=== PATIENT | female | born 1950 | race Caucasian/White ===

== ENCOUNTER 2024-03-18 22:52 | Inpatient (IN) | payer MEDICARE ==
[~2024-03-18] VITALS: Ht 157.5 cm; Wt 52.3 kg
[2024-03-18] MEDS: methylPREDNISolone SOD SUCC 125 MG/2 ML VIAL IV ONE (00:01)
[2024-03-18] MEDS ORDERED: ALBUTEROL SULFATE 2.5 MG/3 ML NEBU ONE (23:22)
[2024-03-18] MEDS: ALBUTEROL SULFATE 2.5 MG/3 ML NEBU NEB ONE (23:28)
[2024-03-18 23:29] VITALS: O2SAT 96
[2024-03-18 23:31] LABS: BASOPHILS % (AUTO) 0.2 % (0.0-2.0); DIFFERENTIAL COMMENT 0; EOSINOPHILS # (AUTO) 0.2 K/uL (0.0-0.7); EOSINOPHILS % (AUTO) 2.1 % (0.0-7.0); HEMATOCRIT 30.6 % (31.2-41.9); HEMOGLOBIN 9.8 g/dL (10.9-14.3); LYMPHOCYTES # (AUTO) 1.3 K/uL (0.8-4.8); LYMPHOCYTES % (AUTO) 13.2 % (20.5-51.5); MEAN CORPUSCULAR HEMOGLOBIN 28.5 uug (24.7-32.8); MEAN CORPUSCULAR HGB CONC 32 g/dL (32.3-35.6); MONOCYTES # (AUTO) 0.9 K/uL (0.1-1.30); MONOCYTES % (AUTO) 9.7 % (0.0-11.0); NEUTROPHILS # (AUTO) 7.2 K/uL (1.8-8.9); NEUTROPHILS % (AUTO) 74.8 % (38.5-71.5); PLATELET COUNT (AUTO) 211 K/uL (179-408); RED BLOOD CELL COUNT(AUTO) 3.44 MIL/uL (3.63-4.92); RED CELL DISTRIBUTION WIDTH 15.8 % (12.3-17.7); WHITE BLOOD COUNT (AUTO) 9.6 K/uL (3.8-11.8)
[2024-03-18 23:34] LABS: CARBON DIOXIDE 33 mmol/L (21-32); CHLORIDE 102 mmol/L (98-107); CREATININE 1.3 mg/dL (0.6-1.3); GLUCOSE 112 mg/dL (74-106); POTASSIUM 4.6 mmol/L (3.5-5.1); SODIUM SERUM 139 mmol/L (136-145); UREA NITROGEN, BLOOD 27 mg/dL (7-18)
[2024-03-18] MEDS ORDERED: methylPREDNISolone SOD SUCC 125 MG/2 ML VIAL ONE (23:36)
[2024-03-18 23:42] VITALS: O2SAT 98
[2024-03-18 23:43] VITALS: O2SAT 98
[2024-03-18 23:49] LABS: ALANINE AMINOTRANSFERASE 14 U/L (14-59); ALBUMIN 2.7 g/dL (3.4-5.0); ALKALINE PHOSPHATASE 65 U/L (50-136); ASPARTATE AMINOTRANSFERASE 13 U/L (15-37); BILIRUBIN,TOTAL 0.4 mg/dL (0.2-1.0); NT-PRO BNP 633 pg/mL (0-125); TOTAL PROTEIN, SERUM 6.9 g/dL (6.4-8.2)
[2024-03-19] VITALS (9 sets, daily range): BP systolic 116–171; BP diastolic 63–88; TEMP 97.7–98.7; O2SAT 84–99
[2024-03-19 00:29] LABS: ABG BASE EXCESS 6.1 mmol/L (-2.0-2.0); ABG HCO3 31.7 mmol/L (22.0-26.0); ABG PCO2 50.5 mmHg (35.0-48.0); ABG PH 7.415 (7.340-7.440); ABG PO2 78.1 mmHg (75.0-100.0); ABG SITE RIGHT BRACHIAL; ABG TOTAL HEMOGLOBIN 10.4 G/dL (12.0-16.0); AaDO2 95.5 mmHg; COHb 0.3 % (0.0-3.9); MetHb 0.2 % (0.0-1.5); O2Hb 94.1 % (94.0-97.0)
[2024-03-19] MEDS ORDERED: MAGNESIUM HYDROXIDE 30 ML LIQUID UDC PO PRN (00:45)
[2024-03-19] MEDS ORDERED: ACETAMINOPHEN 325 MG TABLET PO PRN (00:45)
[2024-03-19] MEDS ORDERED: PIPERACILLIN SODIUM/TAZOBACTAM 3.375 G in IV DEXTROSE 5% 50 ML IV SCH (00:45)
[2024-03-19] MEDS ORDERED: REMEDY ESSENTIAL ZINC PASTE 113 GM TP PRN (00:45)
[2024-03-19] MEDS: ASPIRIN 325 MG TABLET PO ONE (02:45)
[2024-03-19] MEDS ORDERED: ASPIRIN 325 MG TABLET ONE (02:46)
[2024-03-19] MEDS ORDERED: PIPERACILLIN/TAZOBACTAM/D5W 50 ML IV ONE (03:27)
[2024-03-19] MEDS: IV NS 1000 ML 1,000 ML IV SCH (03:30)
[2024-03-19] MEDS: PIPERACILLIN SODIUM/TAZOBACTAM 3.375 G in IV DEXTROSE 5% 50 ML IV SCH (04:23)
[2024-03-19] MEDS: PHENAZOPYRIDINE HCL 100 MG TABLET PO SCH (04:23)
[2024-03-19 05:15] LABS: *BILIRUBIN,URIN NEGATIVE (NEGATIVE); *CLARITY,URINE CLEAR (CLEAR); *COLOR,URINE LIGHT YELLOW (YELLOW); *KETONES,URINE NEGATIVE (NEGATIVE); *PROTEIN,URINE 2+ (NEGATIVE); *UROBILINOGEN,URINE 0.2 E.U./dl (NORMAL); LEUKOCYTE ESTERASE ,URINE NEGATIVE (NEGATIVE); NITRITE, URINE NEGATIVE (NEGATIVE); PH,URINE 8.5 (5.0-8.0); UGLUCOSE NEGATIVE (NEGATIVE)
[2024-03-19] MEDS ORDERED: IV NS 1000 ML 1,000 ML IV PRN (05:16)
[2024-03-19 05:20] LABS: *BLOOD, URINE TRACE (NEGATIVE)
[2024-03-19 05:39] LABS: BACTERIA,URINE RARE /HPF (NONE SEEN); SQUAMOUS EPITHELIAL CELL,UR FEW /HPF (NONE SEEN)
[2024-03-19] MEDS: ONDANSETRON 4 MG/2 ML VIAL IV PRN (06:38)
[2024-03-19] MEDS: predniSONE 20 MG TABLET PO SCH (08:37)
[2024-03-19] MEDS: PANTOPRAZOLE SODIUM 40 MG VIAL IV SCH (08:37)
[2024-03-19] MEDS ORDERED: AMLO10TA59 PO (10:34)
[2024-03-19] MEDS ORDERED: FENO145T21 PO (10:34)
[2024-03-19] MEDS ORDERED: ESCI20TA44 PO (10:34)
[2024-03-19] MEDS ORDERED: ATOR10TA PO (10:34)
[2024-03-19] MEDS: PIPERACILLIN SODIUM/TAZOBACTAM 3.375 G in IV DEXTROSE 5% 100 ML IV SCH (13:05)
[2024-03-19] MEDS ORDERED: PHENAZOPYRIDINE HCL 100 MG TABLET PO SCH (14:00)
[2024-03-19] MEDS: IPRATROPIUM BROMIDE 0.5 MG/2.5 ML NEBU NEB PRN (17:05)
[2024-03-19] MEDS: ALBUTEROL SULFATE 2.5 MG/ 0.5 ML NEBU NEB PRN (17:05)
[2024-03-19] MEDS: HYDROCODONE/APAP 5-325MG TABLET PO PRN (20:17)
[2024-03-20] VITALS (7 sets, daily range): BP systolic 127–143; BP diastolic 58–75; TEMP 98.2–98.3; O2SAT 93–98
[2024-03-20 06:37] LABS: BASOPHILS % (AUTO) 0.1 % (0.0-2.0); HEMATOCRIT 30.8 % (31.2-41.9); HEMOGLOBIN 10.1 g/dL (10.9-14.3); LYMPHOCYTES % (AUTO) 13.7 % (20.5-51.5); MEAN CORPUSCULAR HEMOGLOBIN 29.1 uug (24.7-32.8); MEAN CORPUSCULAR HGB CONC 33 g/dL (32.3-35.6); MEAN CORPUSCULAR VOLUME 88.8 fL (75.5-95.3); MONOCYTES # (AUTO) 0.7 K/uL (0.1-1.30); MONOCYTES % (AUTO) 9.6 % (0.0-11.0); NEUTROPHILS # (AUTO) 5.8 K/uL (1.8-8.9); NEUTROPHILS % (AUTO) 76.6 % (38.5-71.5); PLATELET COUNT (AUTO) 208 K/uL (179-408); RED BLOOD CELL COUNT(AUTO) 3.47 MIL/uL (3.63-4.92); RED CELL DISTRIBUTION WIDTH 16.1 % (12.3-17.7); WHITE BLOOD COUNT (AUTO) 7.6 K/uL (3.8-11.8)
[2024-03-20 06:43] LABS: DIFFERENTIAL COMMENT 1
[2024-03-20 06:56] LABS: CALCIUM 9.3 mg/dL (8.5-10.1); CREATININE 1.3 mg/dL (0.6-1.3); PHOSPHOROUS 3.5 mg/dL (2.5-4.9); POTASSIUM 4.1 mmol/L (3.5-5.1)
[2024-03-20] MEDS: AMLODIPINE 10 MG TABLET PO SCH (09:02)
[2024-03-20] MEDS: FENOFIBRATE NANOCRYSTALLIZED 145 MG TABLET PO SCH (09:02)
[2024-03-20] MEDS: ESCITALOPRAM OXALATE 10 MG TABLET PO SCH (09:42)
[2024-03-20] MEDS: ATORVASTATIN 10 MG TABLET PO SCH (20:16)
[2024-03-20] MEDS: TRAZODONE 50 MG TABLET PO SCH (22:02)
[2024-03-20] MEDS: HYDROCODONE/APAP 5-325MG TABLET PO PRN (23:19)
[2024-03-21] VITALS (9 sets, daily range): BP systolic 90–143; BP diastolic 56–75; TEMP 97.7–98.6; O2SAT 93–98
[2024-03-21] MEDS: PANTOPRAZOLE SODIUM 40 MG TABLET.DR PO SCH (06:23)
[2024-03-21 06:27] LABS: BASOPHILS % (AUTO) 0.1 % (0.0-2.0); EOSINOPHILS % (AUTO) 0.3 % (0.0-7.0); HEMATOCRIT 28.1 % (31.2-41.9); HEMOGLOBIN 9.1 g/dL (10.9-14.3); LYMPHOCYTES # (AUTO) 1.6 K/uL (0.8-4.8); LYMPHOCYTES % (AUTO) 26.3 % (20.5-51.5); MEAN CORPUSCULAR HEMOGLOBIN 28.8 uug (24.7-32.8); MEAN CORPUSCULAR HGB CONC 32 g/dL (32.3-35.6); MEAN CORPUSCULAR VOLUME 89.2 fL (75.5-95.3); MONOCYTES # (AUTO) 0.7 K/uL (0.1-1.30); MONOCYTES % (AUTO) 11.1 % (0.0-11.0); NEUTROPHILS # (AUTO) 3.7 K/uL (1.8-8.9); NEUTROPHILS % (AUTO) 62.2 % (38.5-71.5); PLATELET COUNT (AUTO) 205 K/uL (179-408); RED BLOOD CELL COUNT(AUTO) 3.15 MIL/uL (3.63-4.92); RED CELL DISTRIBUTION WIDTH 15.8 % (12.3-17.7)
[2024-03-21 06:42] LABS: CARBON DIOXIDE 31 mmol/L (21-32); CHLORIDE 107 mmol/L (98-107); CREATININE 1.2 mg/dL (0.6-1.3); GLUCOSE 89 mg/dL (74-106); MAGNESIUM 1.9 mg/dL (1.8-2.4); PHOSPHOROUS 4.1 mg/dL (2.5-4.9); POTASSIUM 4.4 mmol/L (3.5-5.1); SODIUM SERUM 143 mmol/L (136-145); UREA NITROGEN, BLOOD 24 mg/dL (7-18)
[2024-03-21 06:55] LABS: DIFFERENTIAL COMMENT 1
[2024-03-21] MEDS: ENSURE ENLIVE (VAN) 240 ML LIQUID PO SCH (08:00)
[2024-03-21] MEDS: GUAIFENESIN/DEXTROMETHORPHAN 5 ML UDC PO PRN (10:39)
[2024-03-21] MEDS: LORAZEPAM 0.5 MG TABLET PO PRN (20:21)
[2024-03-22 05:58] VITALS: BP 120/71; TEMP 97.4; O2SAT 95
[2024-03-22] MEDS: ESCITALOPRAM OXALATE 10 MG TABLET PO SCH (09:41)
[2024-03-22] MEDS: predniSONE 20 MG TABLET PO SCH (09:41)
[2024-03-22 11:33] VITALS: BP 141/61; TEMP 97.8; O2SAT 97
[2024-03-22] MEDS ORDERED: HYDROCODONE/APAP 5-325MG TABLET PO PRN (11:45)
[2024-03-22] MEDS: CEFTRIAXONE 1 G in IV DEXTROSE 5% 50 ML IV SCH (13:02)
[2024-03-22 15:14] VITALS: O2SAT 97
[2024-03-22 15:53] VITALS: BP 116/52; TEMP 97.6; O2SAT 95
[2024-03-22] MEDS: LORAZEPAM 1 MG TABLET PO PRN (16:51)
[2024-03-22] MEDS ORDERED: CEFT1FRO2 IV (21:24)
[2024-03-22] MEDS ORDERED: MAGN400O6 PO (21:24)
[2024-03-22] MEDS ORDERED: AMLO10TA4 PO (21:24)
[2024-03-22] MEDS ORDERED: PRED20TA PO (21:24)
[2024-03-22] MEDS ORDERED: ALBU2.5V38 IH (21:24)
[2024-03-22] MEDS ORDERED: FENO145T PO (21:24)
[2024-03-22] MEDS ORDERED: ONDA4TAB5 IV (21:24)
[2024-03-22] MEDS ORDERED: PANT40TA49 PO (21:24)
[2024-03-22] MEDS ORDERED: GUAI5SYR PO (21:24)
[2024-03-22] MEDS ORDERED: LACT-84 PO (21:24)
[2024-03-22] MEDS ORDERED: LORA4VIA19 IJ (21:24)
[2024-03-22] MEDS ORDERED: IPRA0.2S48 NEB (21:24)
[2024-03-22] MEDS ORDERED: IPRA0.2S6 NEB (21:24)
[2024-03-22] MEDS ORDERED: ESCI10TA PO (21:24)
[2024-03-23] MEDS ORDERED: CEFTRIAXONE /D5W 50ML IVPB **ER PYXIS IV ONE (00:05)
== END 2024-03-22 19:00 | DRG 190 ==
LOC: ER 22:54 → TELE3 03-19 00:40 → MEDSURG3 03-19 00:41
PROVIDERS: ATTEND Nurse Practitioner Acute Care
DX: J44.1 Chronic obstructive pulmonary disease with (acute) exacerbation (principal); I21.A1 Myocardial infarction type 2; J18.9 Pneumonia, unspecified organism; J96.01 Acute respiratory failure with hypoxia; F33.9 Major depressive disorder, recurrent, unspecified; N39.0 Urinary tract infection, site not specified; R79.89 Other specified abnormal findings of blood chemistry; J44.0 Chronic obstructive pulmonary disease with (acute) lower respiratory infection; N18.30 Chronic kidney disease, stage 3 unspecified; E78.5 Hyperlipidemia, unspecified; I12.9 Hypertensive chronic kidney disease with stage 1 through stage 4 chronic kidney disease, or unspecified chronic kidney disease; Z79.899 Other long term (current) drug therapy; I35.0 Nonrheumatic aortic (valve) stenosis; Z86.69 Personal history of other diseases of the nervous system and sense organs; F41.9 Anxiety disorder, unspecified; B95.2 Enterococcus as the cause of diseases classified elsewhere; Z87.891 Personal history of nicotine dependence; Z82.5 Family history of asthma and other chronic lower respiratory diseases; R26.81 Unsteadiness on feet; D63.8 Anemia in other chronic diseases classified elsewhere; Z90.49 Acquired absence of other specified parts of digestive tract; R53.1 Weakness
CPT/HCPCS: 36415; 36600; 71045; 83605; 83735; 84100; 84484; 85025; 87040; 93307; 94640; A6213; C9113; G0378; J0696; J2405; J2543; J2919; J3590; J7512

== ENCOUNTER 2024-03-22 15:00 | Inpatient (IN) | payer MEDICARE ==
[~2024-03-22] VITALS: Ht 157.5 cm; Wt 54.0 kg
[~2024-03-22 15:00] MED LIST: AMLO10TA59 PO; ATOR10TA PO; ESCI20TA44 PO; FENO145T21 PO
[2024-03-22 20:00] VITALS: BP 121/70; TEMP 97.8; O2SAT 97
[2024-03-22] MEDS ORDERED: GUAI5SYR PO (21:24)
[2024-03-22] MEDS ORDERED: FENO145T PO (21:24)
[2024-03-22] MEDS ORDERED: PRED20TA PO (21:24)
[2024-03-22] MEDS ORDERED: IPRA0.2S6 NEB (21:24)
[2024-03-22] MEDS ORDERED: PANT40TA49 PO (21:24)
[2024-03-22] MEDS ORDERED: LORA4VIA19 IJ (21:24)
[2024-03-22] MEDS ORDERED: ONDA4TAB5 IV (21:24)
[2024-03-22] MEDS ORDERED: ALBU2.5V38 IH (21:24)
[2024-03-22] MEDS ORDERED: CEFT1FRO2 IV (21:24)
[2024-03-22] MEDS ORDERED: AMLO10TA4 PO (21:24)
[2024-03-22] MEDS ORDERED: LACT-84 PO (21:24)
[2024-03-22] MEDS ORDERED: ESCI10TA PO (21:24)
[2024-03-22] MEDS ORDERED: IPRA0.2S48 NEB (21:24)
[2024-03-22] MEDS ORDERED: MAGN400O6 PO (21:24)
[2024-03-22] MEDS ORDERED: LORAZEPAM 2 MG/1 ML VIAL IV PRN (22:00)
[2024-03-22] MEDS ORDERED: ONDANSETRON 4 MG/2 ML VIAL IV PRN (22:00)
[2024-03-22] MEDS ORDERED: CEFTRIAXONE 1 G in IV DEXTROSE 5% 50 ML IV SCH (22:00)
[2024-03-22] MEDS ORDERED: ALBUTEROL SULFATE 2.5 MG/ 0.5 ML NEBU NEB PRN (22:00)
[2024-03-22] MEDS ORDERED: MAGNESIUM HYDROXIDE 30 ML LIQUID UDC PO PRN (22:00)
[2024-03-22] MEDS: IPRATROPIUM BROMIDE 0.5 MG/2.5 ML NEBU NEB SCH (23:30)
[2024-03-23] VITALS (7 sets, daily range): BP systolic 105–143; BP diastolic 66–73; TEMP 98.4–98.6; O2SAT 91–99
[2024-03-23] MEDS: HYDROCODONE/APAP 5-325MG TABLET PO PRN (05:37)
[2024-03-23] MEDS: PANTOPRAZOLE SODIUM 40 MG TABLET.DR PO SCH (06:25)
[2024-03-23] MEDS ORDERED: predniSONE 20 MG TABLET PO SCH (08:00)
[2024-03-23] MEDS: ENSURE ENLIVE (VAN) 240 ML LIQUID PO SCH (08:00)
[2024-03-23] MEDS: AMLODIPINE 10 MG TABLET PO SCH (08:51)
[2024-03-23] MEDS: FENOFIBRATE NANOCRYSTALLIZED 145 MG TABLET PO SCH (08:52)
[2024-03-23] MEDS: ESCITALOPRAM OXALATE 10 MG TABLET PO SCH (08:52)
[2024-03-23] MEDS: predniSONE 10 MG TABLET PO SCH (08:54)
[2024-03-23] MEDS ORDERED: REMEDY ESSENTIAL ZINC PASTE 113 GM TOP SCH (09:00)
[2024-03-23] MEDS ORDERED: CEFTRIAXONE 1 G in IV DEXTROSE 5% 50 ML IV SCH (11:00)
[2024-03-23] MEDS: IPRATROPIUM BROMIDE 0.5 MG/2.5 ML NEBU NEB PRN (12:29)
[2024-03-23] MEDS: ALBUTEROL SULFATE 2.5 MG/ 0.5 ML NEBU NEB PRN (12:29)
[2024-03-23] MEDS: REMEDY ESSENTIAL ZINC PASTE 113 GM TOP SCH (12:50)
[2024-03-23] MEDS: LORAZEPAM 1 MG TABLET PO PRN (14:35)
[2024-03-23] MEDS: NITROFURANTOIN/NITROFURAN MAC 100 MG CAPSULE PO SCH (16:39)
[2024-03-23] MEDS: ATORVASTATIN 10 MG TABLET PO SCH (20:09)
[2024-03-23] MEDS: GUAIFENESIN/DEXTROMETHORPHAN 5 ML UDC PO PRN (20:11)
[2024-03-24] VITALS (8 sets, daily range): BP systolic 112–121; BP diastolic 55–73; TEMP 98.1–98.6; O2SAT 94–97
[2024-03-24 07:29] LABS: BASOPHILS % (AUTO) 0.2 % (0.0-2.0); EOSINOPHILS # (AUTO) 0.5 K/uL (0.0-0.7); EOSINOPHILS % (AUTO) 6.5 % (0.0-7.0); HEMATOCRIT 30.1 % (31.2-41.9); HEMOGLOBIN 9.7 g/dL (10.9-14.3); LYMPHOCYTES # (AUTO) 1.7 K/uL (0.8-4.8); LYMPHOCYTES % (AUTO) 23.8 % (20.5-51.5); MEAN CORPUSCULAR HEMOGLOBIN 28.7 uug (24.7-32.8); MEAN CORPUSCULAR HGB CONC 32 g/dL (32.3-35.6); MEAN CORPUSCULAR VOLUME 89.2 fL (75.5-95.3); MONOCYTES # (AUTO) 0.7 K/uL (0.1-1.30); MONOCYTES % (AUTO) 10.5 % (0.0-11.0); NEUTROPHILS # (AUTO) 4.1 K/uL (1.8-8.9); PLATELET COUNT (AUTO) 212 K/uL (179-408); RED BLOOD CELL COUNT(AUTO) 3.38 MIL/uL (3.63-4.92); RED CELL DISTRIBUTION WIDTH 15.5 % (12.3-17.7)
[2024-03-24 07:37] LABS: DIFFERENTIAL COMMENT 1
[2024-03-24] MEDS ORDERED: predniSONE 20 MG TABLET PO SCH (08:00)
[2024-03-24 08:06] LABS: ALBUMIN 2.7 g/dL (3.4-5.0); BILIRUBIN,TOTAL 0.3 mg/dL (0.2-1.0); CALCIUM 8.9 mg/dL (8.5-10.1); MAGNESIUM 1.8 mg/dL (1.8-2.4); PHOSPHOROUS 3.7 mg/dL (2.5-4.9); POTASSIUM 3.8 mmol/L (3.5-5.1); TOTAL PROTEIN, SERUM 6.4 g/dL (6.4-8.2)
[2024-03-24 08:22] LABS: THYROID STIMULATING HORMONE 2.159 mIU/mL (0.358-3.740)
[2024-03-24] MEDS: LIDOCAINE 2%-EPI 1:100,000 20 ML VIAL IJ ONE (17:33)
[2024-03-24] MEDS: SILVER NITRATE APPLICATOR STICK EACH TP ONE (17:33)
[2024-03-24] MEDS: ALPRAZOLAM 0.5 MG TABLET PO PRN (18:21)
[2024-03-24] MEDS: HYDROCODONE/APAP 10-325 MG TABLET PO PRN (21:29)
[2024-03-25] MEDS: AMLODIPINE 5 MG TABLET PO SCH (08:19)
[2024-03-25] MEDS: MUPIROCIN 2% OINT 22 GM TUBE NS SCH (09:00)
[2024-03-25 15:27] VITALS: BP 108/47; TEMP 98.1; O2SAT 98
[2024-03-25 21:00] VITALS: BP 118/69; TEMP 98.4; O2SAT 98
[2024-03-26] MEDS: HYDROCODONE/APAP 10-325 MG TABLET PO PRN (00:39)
[2024-03-26 02:11] VITALS: O2SAT 97
[2024-03-26 04:30] VITALS: O2SAT 95
[2024-03-26 04:41] VITALS: O2SAT 97
[2024-03-26 04:45] VITALS: O2SAT 97
[2024-03-26 06:53] VITALS: BP 133/55; TEMP 98; O2SAT 95
[2024-03-26] MEDS: FLUTICASONE/VILANTEROL 1 EACH BLST.W.DEV INH SCH (08:20)
[2024-03-26] MEDS: predniSONE 5 MG TABLET PO SCH (08:37)
[2024-03-26] MEDS ORDERED: FLUTICASONE/SALMETEROL 250/50 INHALER INH SCH (09:00)
[2024-03-26] MEDS: LIDOCAINE/PRILOCAINE 5 GM CREAM.GM. TP PRN (16:21)
[2024-03-26] MEDS: ACETAMINOPHEN 325 MG TABLET PO PRN (19:47)
[2024-03-26 20:00] VITALS: BP 138/74; TEMP 98.9; O2SAT 97
[2024-03-27 04:29] VITALS: O2SAT 98
[2024-03-27 05:30] VITALS: BP 122/69; TEMP 98.3; O2SAT 96
[2024-03-27] MEDS ORDERED: predniSONE 10 MG TABLET PO SCH (08:00)
[2024-03-27 10:48] VITALS: O2SAT 91
[2024-03-27 10:58] VITALS: O2SAT 97
[2024-03-27 16:48] VITALS: BP 100/50; TEMP 99.5; O2SAT 96
[2024-03-27 20:15] VITALS: BP 106/39; TEMP 99.3; O2SAT 93
[2024-03-27 23:06] LABS: *BILIRUBIN,URIN NEGATIVE (NEGATIVE); *COLOR,URINE YELLOW (YELLOW); *KETONES,URINE NEGATIVE (NEGATIVE); *PROTEIN,URINE 1+ (NEGATIVE); *UROBILINOGEN,URINE 0.2 E.U./dl (NORMAL); LEUKOCYTE ESTERASE ,URINE TRACE (NEGATIVE); NITRITE, URINE NEGATIVE (NEGATIVE); UGLUCOSE NEGATIVE (NEGATIVE)
[2024-03-27 23:08] LABS: *BLOOD, URINE TRACE LYSED (NEGATIVE)
[2024-03-27 23:09] LABS: *CLARITY,URINE HAZY (CLEAR)
[2024-03-27 23:24] LABS: BACTERIA,URINE NONE SEEN /HPF (NONE SEEN); SQUAMOUS EPITHELIAL CELL,UR FEW /HPF (NONE SEEN); WBC,URINE 0-3 /HPF (0-3)
[2024-03-28] VITALS (11 sets, daily range): BP systolic 91–114; BP diastolic 42–78; TEMP 98–98.9; O2SAT 93–100
[2024-03-28 06:56] LABS: BASOPHILS % (AUTO) 0.3 % (0.0-2.0); EOSINOPHILS # (AUTO) 0.1 K/uL (0.0-0.7); EOSINOPHILS % (AUTO) 1.6 % (0.0-7.0); HEMATOCRIT 28.5 % (31.2-41.9); HEMOGLOBIN 9.1 g/dL (10.9-14.3); LYMPHOCYTES # (AUTO) 0.9 K/uL (0.8-4.8); LYMPHOCYTES % (AUTO) 19.6 % (20.5-51.5); MEAN CORPUSCULAR HEMOGLOBIN 28.7 uug (24.7-32.8); MEAN CORPUSCULAR HGB CONC 32 g/dL (32.3-35.6); MEAN CORPUSCULAR VOLUME 89.4 fL (75.5-95.3); MONOCYTES # (AUTO) 0.7 K/uL (0.1-1.30); MONOCYTES % (AUTO) 14.5 % (0.0-11.0); NEUTROPHILS # (AUTO) 3.1 K/uL (1.8-8.9); PLATELET COUNT (AUTO) 200 K/uL (179-408); RED BLOOD CELL COUNT(AUTO) 3.19 MIL/uL (3.63-4.92); RED CELL DISTRIBUTION WIDTH 15.4 % (12.3-17.7); WHITE BLOOD COUNT (AUTO) 4.8 K/uL (3.8-11.8)
[2024-03-28 07:23] LABS: DIFFERENTIAL COMMENT 1
[2024-03-28 07:25] LABS: ALANINE AMINOTRANSFERASE 13 U/L (14-59); ALBUMIN 2.6 g/dL (3.4-5.0); ALKALINE PHOSPHATASE 51 U/L (50-136); ASPARTATE AMINOTRANSFERASE 26 U/L (15-37); BILIRUBIN,TOTAL 0.4 mg/dL (0.2-1.0); CALCIUM 9.1 mg/dL (8.5-10.1); CARBON DIOXIDE 31 mmol/L (21-32); CHLORIDE 103 mmol/L (98-107); CREATININE 1.3 mg/dL (0.6-1.3); GLUCOSE 88 mg/dL (74-106); MAGNESIUM 1.8 mg/dL (1.8-2.4); PHOSPHOROUS 4.5 mg/dL (2.5-4.9); POTASSIUM 4.4 mmol/L (3.5-5.1); SODIUM SERUM 139 mmol/L (136-145); TOTAL PROTEIN, SERUM 6.4 g/dL (6.4-8.2); UREA NITROGEN, BLOOD 28 mg/dL (7-18)
[2024-03-28] MEDS: QUETIAPINE FUMARATE 25 MG TABLET PO ONE (21:46)
[2024-03-29] VITALS (9 sets, daily range): BP systolic 80–156; BP diastolic 40–72; TEMP 97.7–100.2; O2SAT 92–100
[2024-03-30] VITALS (8 sets, daily range): BP systolic 94–168; BP diastolic 38–81; TEMP 97.4–97.9; O2SAT 91–98
[2024-03-30 07:04] LABS: BASOPHILS % (AUTO) 0.2 % (0.0-2.0); EOSINOPHILS # (AUTO) 0.1 K/uL (0.0-0.7); EOSINOPHILS % (AUTO) 2.4 % (0.0-7.0); HEMATOCRIT 32.9 % (31.2-41.9); HEMOGLOBIN 10.4 g/dL (10.9-14.3); LYMPHOCYTES % (AUTO) 17.3 % (20.5-51.5); MEAN CORPUSCULAR HEMOGLOBIN 28.4 uug (24.7-32.8); MEAN CORPUSCULAR HGB CONC 32 g/dL (32.3-35.6); MEAN CORPUSCULAR VOLUME 89.8 fL (75.5-95.3); MONOCYTES # (AUTO) 0.6 K/uL (0.1-1.30); MONOCYTES % (AUTO) 10.6 % (0.0-11.0); NEUTROPHILS # (AUTO) 4.1 K/uL (1.8-8.9); NEUTROPHILS % (AUTO) 69.5 % (38.5-71.5); PLATELET COUNT (AUTO) 203 K/uL (179-408); RED BLOOD CELL COUNT(AUTO) 3.66 MIL/uL (3.63-4.92); RED CELL DISTRIBUTION WIDTH 15.7 % (12.3-17.7); WHITE BLOOD COUNT (AUTO) 5.9 K/uL (3.8-11.8)
[2024-03-30 07:17] LABS: DIFFERENTIAL COMMENT 1
[2024-03-30 07:18] LABS: CALCIUM 9.5 mg/dL (8.5-10.1); CREATININE 1.2 mg/dL (0.6-1.3); MAGNESIUM 1.8 mg/dL (1.8-2.4); PHOSPHOROUS 3.6 mg/dL (2.5-4.9); POTASSIUM 3.9 mmol/L (3.5-5.1)
[2024-03-31 04:22] VITALS: O2SAT 94
[2024-03-31 04:37] VITALS: O2SAT 98
[2024-03-31 09:51] VITALS: O2SAT 93
[2024-03-31 10:06] VITALS: O2SAT 99
[2024-03-31 16:00] VITALS: BP 136/73; TEMP 98.6; O2SAT 95
[2024-03-31 20:28] VITALS: BP 103/64; TEMP 98.5; O2SAT 95
[2024-04-01] VITALS (7 sets, daily range): BP systolic 122–130; BP diastolic 68–73; TEMP 98.8–98.9; O2SAT 94–98
[2024-04-02] VITALS (7 sets, daily range): BP systolic 148–155; BP diastolic 53–76; TEMP 97.9–98.6; O2SAT 94–99
[2024-04-02] MEDS ORDERED: ZINC113P3 TP (17:44)
[2024-04-02] MEDS ORDERED: FLUT1BLS IH (17:44)
[2024-04-02] MEDS ORDERED: ALPR1TAB7 PO (17:44)
[2024-04-02] MEDS ORDERED: ACET-2154 PO (17:44)
[2024-04-02] MEDS ORDERED: LIDO30CR TP (17:44)
[2024-04-02] MEDS ORDERED: AMLO-212 PO (17:44)
[2024-04-03] MEDS ORDERED: ALBUTEROL SULFATE 2.5 MG/3 ML NEBU ONE ×2 (00:38→23:52)
[2024-04-03] MEDS ORDERED: IPRATROPIUM BROMIDE 0.5 MG/2.5 ML NEBU ONE ×2 (00:39→23:52)
== END 2024-04-02 16:05 | disposition short-term general hospital (02) | DRG 190 ==
PROVIDERS: ADMIT Physical Medicine & Rehabilitation; ATTEND Physical Medicine & Rehabilitation
PROC: 0HB8XZX Excision of Buttock Skin, External Approach, Diagnostic (ICD-10-PCS; principal; 2024-03-24)
DX: J44.1 Chronic obstructive pulmonary disease with (acute) exacerbation (principal); I21.A1 Myocardial infarction type 2; J18.9 Pneumonia, unspecified organism; J96.01 Acute respiratory failure with hypoxia; J96.02 Acute respiratory failure with hypercapnia; N39.0 Urinary tract infection, site not specified; F03.918 Unspecified dementia, unspecified severity, with other behavioral disturbance; J44.0 Chronic obstructive pulmonary disease with (acute) lower respiratory infection; D63.1 Anemia in chronic kidney disease; I12.9 Hypertensive chronic kidney disease with stage 1 through stage 4 chronic kidney disease, or unspecified chronic kidney disease; N18.30 Chronic kidney disease, stage 3 unspecified; I27.20 Pulmonary hypertension, unspecified; I35.0 Nonrheumatic aortic (valve) stenosis; Z87.891 Personal history of nicotine dependence; Z90.49 Acquired absence of other specified parts of digestive tract; R53.1 Weakness; L98.8 Other specified disorders of the skin and subcutaneous tissue; F32.A Depression, unspecified; F41.9 Anxiety disorder, unspecified; G89.29 Other chronic pain; I70.0 Atherosclerosis of aorta; E78.5 Hyperlipidemia, unspecified; S30.0XXA Contusion of lower back and pelvis, initial encounter; X58.XXXA Exposure to other specified factors, initial encounter; Y92.89 Other specified places as the place of occurrence of the external cause; Z80.3 Family history of malignant neoplasm of breast
CPT/HCPCS: 36415; 71045; 71046; 83735; 84100; 84443; 85025; 88312-TC; 88342; 94640; 94760; 97535-GO-CO; A4663; A6209; A6213; J0696; J3590; J7512

== ENCOUNTER 2024-04-02 16:25 | Inpatient (IN) | payer MEDICARE ==
[~2024-04-02] VITALS: Ht 157.5 cm; Wt 50.8 kg
[~2024-04-02 16:25] MED LIST changes: +ALBU2.5V38 IH; +AMLO10TA4 PO; -AMLO10TA59 PO; +CEFT1FRO2 IV; +ESCI10TA PO; -ESCI20TA44 PO; +GUAI5SYR PO; +IPRA0.2S6 NEB; +LACT-84 PO; +MAGN400O6 PO; +PANT40TA49 PO; +PRED20TA PO
[2024-04-02] MEDS ORDERED: ALPR1TAB7 PO (17:44)
[2024-04-02] MEDS ORDERED: ACET-2154 PO (17:44)
[2024-04-02] MEDS ORDERED: ZINC113P3 TP (17:44)
[2024-04-02] MEDS ORDERED: FLUT1BLS IH (17:44)
[2024-04-02] MEDS ORDERED: AMLO-212 PO (17:44)
[2024-04-02] MEDS ORDERED: LIDO30CR TP (17:44)
[2024-04-02] MEDS ORDERED: ACETAMINOPHEN 325 MG TABLET PO PRN (18:00)
[2024-04-02] MEDS ORDERED: REMEDY ESSENTIAL ZINC PASTE 113 GM TP PRN (18:15)
[2024-04-02] MEDS ORDERED: MAGNESIUM HYDROXIDE 30 ML LIQUID UDC PO PRN ×2 (18:15→21:00)
[2024-04-02] MEDS ORDERED: ONDANSETRON 4 MG/2 ML VIAL IV PRN (18:15)
[2024-04-02 19:15] VITALS: O2SAT 92
[2024-04-02 19:24] VITALS: O2SAT 92
[2024-04-02 19:30] VITALS: O2SAT 93
[2024-04-02 19:40] VITALS: BP 126/66; TEMP 98.4; O2SAT 92
[2024-04-02] MEDS: ALPRAZOLAM 0.5 MG TABLET PO PRN (20:23)
[2024-04-02] MEDS: levoFLOXacin 500 MG/D5W 500 MG in PREMIXED 1 EACH IV SCH (20:23)
[2024-04-02] MEDS: AMLODIPINE 5 MG TABLET PO SCH (20:37)
[2024-04-02] MEDS: REMEDY ESSENTIAL ZINC PASTE 113 GM TOP SCH (21:00)
[2024-04-02] MEDS: IPRATROPIUM BROMIDE 0.5 MG/2.5 ML NEBU NEB SCH (21:02)
[2024-04-02] MEDS: ALBUTEROL SULFATE 2.5 MG/3 ML NEBU NEB SCH (21:02)
[2024-04-02] MEDS: TRAZODONE 50 MG TABLET PO SCH (21:57)
[2024-04-02] MEDS: methylPREDNISolone SOD SUCC 40 MG/ML VIAL IV SCH (22:08)
[2024-04-03] VITALS (15 sets, daily range): BP systolic 99–120; BP diastolic 55–69; TEMP 97.4–98.3; O2SAT 92–99
[2024-04-03] MEDS: GUAIFENESIN/DEXTROMETHORPHAN 5 ML UDC PO PRN
[2024-04-03] MEDS: ACETAMINOPHEN 325 MG TABLET PO PRN (00:03)
[2024-04-03] MEDS: ZOLPIDEM 5 MG TABLET PO PRN (00:25)
[2024-04-03] MEDS: ALBUTEROL SULFATE 2.5 MG/3 ML NEBU NEB PRN (00:35)
[2024-04-03] MEDS: IPRATROPIUM BROMIDE 0.5 MG/2.5 ML NEBU NEB PRN (00:35)
[2024-04-03] MEDS: PANTOPRAZOLE SODIUM 40 MG TABLET.DR PO SCH (06:17)
[2024-04-03] MEDS ORDERED: PANTOPRAZOLE SODIUM 40 MG TABLET.DR PO SCH (07:00)
[2024-04-03 07:05] LABS: BASOPHILS % (AUTO) 0.1 % (0.0-2.0); EOSINOPHILS % (AUTO) 0.1 % (0.0-7.0); HEMATOCRIT 29.8 % (31.2-41.9); HEMOGLOBIN 9.6 g/dL (10.9-14.3); LYMPHOCYTES # (AUTO) 0.3 K/uL (0.8-4.8); LYMPHOCYTES % (AUTO) 9.3 % (20.5-51.5); MEAN CORPUSCULAR HEMOGLOBIN 28.4 uug (24.7-32.8); MEAN CORPUSCULAR HGB CONC 32 g/dL (32.3-35.6); MEAN CORPUSCULAR VOLUME 88.4 fL (75.5-95.3); MONOCYTES # (AUTO) 0.1 K/uL (0.1-1.30); MONOCYTES % (AUTO) 2.9 % (0.0-11.0); NEUTROPHILS % (AUTO) 87.6 % (38.5-71.5); PLATELET COUNT (AUTO) 182 K/uL (179-408); RED BLOOD CELL COUNT(AUTO) 3.37 MIL/uL (3.63-4.92); RED CELL DISTRIBUTION WIDTH 15.5 % (12.3-17.7); WHITE BLOOD COUNT (AUTO) 3.4 K/uL (3.8-11.8)
[2024-04-03 07:07] LABS: CALCIUM 8.9 mg/dL (8.5-10.1); CREATININE 1.1 mg/dL (0.6-1.3); MAGNESIUM 1.6 mg/dL (1.8-2.4); PHOSPHOROUS 4.2 mg/dL (2.5-4.9); POTASSIUM 4.7 mmol/L (3.5-5.1)
[2024-04-03 07:13] LABS: DIFFERENTIAL COMMENT 1
[2024-04-03] MEDS: ENSURE ENLIVE (VAN) 240 ML LIQUID PO SCH (08:00)
[2024-04-03] MEDS: ESCITALOPRAM OXALATE 10 MG TABLET PO SCH (08:24)
[2024-04-03] MEDS: FLUTICASONE/VILANTEROL 1 EACH BLST.W.DEV IH SCH (08:26)
[2024-04-03] MEDS ORDERED: ENSURE ENLIVE (VAN) 240 ML LIQUID PO SCH (09:00)
[2024-04-03] MEDS: QUETIAPINE FUMARATE 25 MG TABLET PO PRN (12:12)
[2024-04-03] MEDS: MAGNESIUM SULFATE/D5W 100 ML IV SCH (13:51)
[2024-04-03] MEDS ORDERED: ALBUTEROL SULFATE 2.5 MG/3 ML NEBU ONE (19:12)
[2024-04-03] MEDS ORDERED: IPRATROPIUM BROMIDE 0.5 MG/2.5 ML NEBU ONE (19:12)
[2024-04-03] MEDS: levoFLOXacin 250MG /D5W 50 ML IV SCH (19:47)
[2024-04-04] VITALS (14 sets, daily range): BP systolic 102–139; BP diastolic 58–78; TEMP 97.3–97.6; O2SAT 92–99
[2024-04-04] MEDS: HYDROCODONE/APAP 10-325 MG TABLET PO PRN (00:34)
[2024-04-04 06:56] LABS: BASOPHILS % (AUTO) 0.2 % (0.0-2.0); EOSINOPHILS % (AUTO) 0.1 % (0.0-7.0); HEMATOCRIT 27.5 % (31.2-41.9); LYMPHOCYTES # (AUTO) 0.6 K/uL (0.8-4.8); LYMPHOCYTES % (AUTO) 14.2 % (20.5-51.5); MEAN CORPUSCULAR HEMOGLOBIN 28.7 uug (24.7-32.8); MEAN CORPUSCULAR HGB CONC 33 g/dL (32.3-35.6); MONOCYTES # (AUTO) 0.4 K/uL (0.1-1.30); MONOCYTES % (AUTO) 9.3 % (0.0-11.0); NEUTROPHILS # (AUTO) 3.3 K/uL (1.8-8.9); NEUTROPHILS % (AUTO) 76.2 % (38.5-71.5); PLATELET COUNT (AUTO) 185 K/uL (179-408); RED BLOOD CELL COUNT(AUTO) 3.12 MIL/uL (3.63-4.92); RED CELL DISTRIBUTION WIDTH 15.4 % (12.3-17.7); WHITE BLOOD COUNT (AUTO) 4.3 K/uL (3.8-11.8)
[2024-04-04 07:01] LABS: CALCIUM 9.3 mg/dL (8.5-10.1); CREATININE 1.3 mg/dL (0.6-1.3); MAGNESIUM 2.4 mg/dL (1.8-2.4); PHOSPHOROUS 4.1 mg/dL (2.5-4.9); POTASSIUM 4.4 mmol/L (3.5-5.1)
[2024-04-04 07:05] LABS: DIFFERENTIAL COMMENT 1
[2024-04-04 07:10] LABS: C-REACTIVE PROTEIN 7.22 mg/dL (0.00-0.30)
[2024-04-04] MEDS ORDERED: levoFLOXacin 750MG/D5W 150 ML IV SCH (20:00)
[2024-04-04] MEDS: methylPREDNISolone SOD SUCC 40 MG/ML VIAL IV SCH (20:35)
[2024-04-05] VITALS (11 sets, daily range): BP systolic 101–157; BP diastolic 49–76; TEMP 97.4–98.9; O2SAT 93–98
[2024-04-05] MEDS: methylPREDNISolone SOD SUCC 40 MG/ML VIAL IV SCH (09:17)
[2024-04-05] MEDS: QUETIAPINE FUMARATE 25 MG TABLET PO PRN (16:46)
[2024-04-05] MEDS ORDERED: levoFLOXacin 750MG/D5W 150 ML IV SCH (20:00)
[2024-04-06] VITALS (11 sets, daily range): BP systolic 102–137; BP diastolic 46–76; TEMP 97.8–98.3; O2SAT 95–99
[2024-04-06 07:26] LABS: BASOPHILS % (AUTO) 0.1 % (0.0-2.0); HEMATOCRIT 30.3 % (31.2-41.9); HEMOGLOBIN 9.5 g/dL (10.9-14.3); LYMPHOCYTES # (AUTO) 0.4 K/uL (0.8-4.8); MEAN CORPUSCULAR HEMOGLOBIN 27.6 uug (24.7-32.8); MEAN CORPUSCULAR HGB CONC 31 g/dL (32.3-35.6); MEAN CORPUSCULAR VOLUME 87.8 fL (75.5-95.3); MONOCYTES # (AUTO) 0.3 K/uL (0.1-1.30); MONOCYTES % (AUTO) 7.3 % (0.0-11.0); NEUTROPHILS # (AUTO) 3.1 K/uL (1.8-8.9); NEUTROPHILS % (AUTO) 82.6 % (38.5-71.5); PLATELET COUNT (AUTO) 240 K/uL (179-408); RED BLOOD CELL COUNT(AUTO) 3.45 MIL/uL (3.63-4.92); RED CELL DISTRIBUTION WIDTH 15.7 % (12.3-17.7); WHITE BLOOD COUNT (AUTO) 3.7 K/uL (3.8-11.8)
[2024-04-06 07:32] LABS: DIFFERENTIAL COMMENT 1
[2024-04-06 08:09] LABS: CALCIUM 9.6 mg/dL (8.5-10.1); CARBON DIOXIDE 36 mmol/L (21-32); CHLORIDE 101 mmol/L (98-107); CREATININE 1.3 mg/dL (0.6-1.3); GLUCOSE 128 mg/dL (74-106); MAGNESIUM 2.1 mg/dL (1.8-2.4); PHOSPHOROUS 4.3 mg/dL (2.5-4.9); POTASSIUM 5.6 mmol/L (3.5-5.1); SODIUM SERUM 141 mmol/L (136-145); UREA NITROGEN, BLOOD 21 mg/dL (7-18)
[2024-04-06 08:14] LABS: C-REACTIVE PROTEIN 3.29 mg/dL (0.00-0.30)
[2024-04-06] MEDS: methylPREDNISolone SOD SUCC 40 MG/ML VIAL IV SCH (09:08)
[2024-04-06] MEDS: LIDOCAINE/PRILOCAINE 5 GM CREAM.GM. TP PRN (09:12)
[2024-04-07 06:09] VITALS: BP 141/69; TEMP 97.5; O2SAT 98
[2024-04-07 07:27] LABS: BASOPHILS % (AUTO) 0.2 % (0.0-2.0); EOSINOPHILS % (AUTO) 0.1 % (0.0-7.0); HEMATOCRIT 29.5 % (31.2-41.9); HEMOGLOBIN 9.2 g/dL (10.9-14.3); LYMPHOCYTES # (AUTO) 0.9 K/uL (0.8-4.8); LYMPHOCYTES % (AUTO) 14.7 % (20.5-51.5); MEAN CORPUSCULAR HEMOGLOBIN 27.4 uug (24.7-32.8); MEAN CORPUSCULAR HGB CONC 31 g/dL (32.3-35.6); MEAN CORPUSCULAR VOLUME 87.8 fL (75.5-95.3); MONOCYTES # (AUTO) 0.6 K/uL (0.1-1.30); MONOCYTES % (AUTO) 9.7 % (0.0-11.0); NEUTROPHILS # (AUTO) 4.8 K/uL (1.8-8.9); NEUTROPHILS % (AUTO) 75.3 % (38.5-71.5); PLATELET COUNT (AUTO) 222 K/uL (179-408); RED BLOOD CELL COUNT(AUTO) 3.36 MIL/uL (3.63-4.92); RED CELL DISTRIBUTION WIDTH 15.2 % (12.3-17.7); WHITE BLOOD COUNT (AUTO) 6.3 K/uL (3.8-11.8)
[2024-04-07 07:35] LABS: DIFFERENTIAL COMMENT 1
[2024-04-07 07:40] VITALS: O2SAT 96
[2024-04-07 07:41] LABS: CALCIUM 9.1 mg/dL (8.5-10.1); CREATININE 1.1 mg/dL (0.6-1.3); POTASSIUM 4.2 mmol/L (3.5-5.1)
[2024-04-07 07:50] VITALS: O2SAT 98
[2024-04-07] MEDS ORDERED: PRED20TA PO (09:26)
[2024-04-07 12:00] VITALS: BP 143/71; TEMP 98.1; O2SAT 97
[2024-04-07 13:32] VITALS: O2SAT 96
[2024-04-07 13:42] VITALS: O2SAT 99
== END 2024-04-07 15:18 | DRG 177 ==
LOC: MEDSURG3 16:25
PROVIDERS: ADMIT Nurse Practitioner Acute Care; ATTEND Nurse Practitioner Acute Care
DX: J15.69 Pneumonia due to other Gram-negative bacteria (principal); I21.A1 Myocardial infarction type 2; J96.01 Acute respiratory failure with hypoxia; J44.0 Chronic obstructive pulmonary disease with (acute) lower respiratory infection; I13.0 Hypertensive heart and chronic kidney disease with heart failure and stage 1 through stage 4 chronic kidney disease, or unspecified chronic kidney disease; I50.32 Chronic diastolic (congestive) heart failure; J44.1 Chronic obstructive pulmonary disease with (acute) exacerbation; F41.9 Anxiety disorder, unspecified; R53.83 Other fatigue; E78.5 Hyperlipidemia, unspecified; M15.9 Polyosteoarthritis, unspecified; L98.9 Disorder of the skin and subcutaneous tissue, unspecified; D64.9 Anemia, unspecified; C44.529 Squamous cell carcinoma of skin of other part of trunk; F32.A Depression, unspecified; M89.8X9 Other specified disorders of bone, unspecified site; N18.30 Chronic kidney disease, stage 3 unspecified; Z87.01 Personal history of pneumonia (recurrent); Z86.69 Personal history of other diseases of the nervous system and sense organs
CPT/HCPCS: 36415; 71045; 83735; 84100; 85025; 86140; 93005; 94640; 94760; A6209; A6213; G0378; J1956; J2919; J3475; J3590